=== PATIENT | female | born 1955 | race Caucasian/White ===

== ENCOUNTER 2017-02-03 11:28 | Emergency (ER) | payer OTHER ==
[2017-02-03 12:10] VITALS: RESP 18
[2017-02-03] MEDS ORDERED: NS 1,000 ML IV ONE ×2 (12:13→12:50)
[2017-02-03] MEDS ORDERED: ONDANSETRON 4 MG/2 ML VIAL IVP ONE (12:50)
--- NOTE | 2017-02-03 12:59 | UCPHY ---
H & P Patient Type: Established Chief Complaint Nursing Narrative: c/o N/V/D since last night- went into office told to come into for IV fluids due to low BP Time Seen by Provider: 02/03/17 12:48 HPI/ROS: CHIEF COMPLAINT: Nausea, vomiting, diarrhea HISTORY OF PRESENT ILLNESS: This is a 61-year-old female who flew back from [place] last night. She developed nausea, vomiting, diarrhea in the import/export administrator hours. Has had repeated bouts of vomiting and diarrhea. Went to see her primary care physician this morning noted that she was febrile to 101 as well as hypotensive and was referr to the urgent care for fluids and further evaluation. Patient reports chills. No chest pain or shortness of breath. No palpitations. No urinary complaints. No lightheadedness, headache, or syncope. No bloody diarrhea. No blood in the vomit. No history of GI issues. REVIEW OF SYSTEMS: Aside from elements discussed in the HPI, a comprehensive 10-point review of systems was reviewed and is negative. PAST MEDICAL HISTORY: Hypothyroidism. SOCIAL HISTORY: Nonsmoker. VITAL SIGNS Reviewed by me. Initial blood pressure was 92/63 pulse of 94. Afebrile here. GENERAL: Well-developed, well-nourished, resting comfortably in no respiratory distress. HEENT: Atraumatic. Eyes: No icterus, no injection. Mouth: Slightly dry mucous membranes. No erythema or lesions. Neck: supple with no adenopathy. LUNGS: Clear to auscultation bilaterally, no wheezes, rhonchi or rales. CARDIAC: Regular rate and rhythm, no rubs, murmurs or gallops. ABDOMEN: Soft, nontender, nondistended, bowel sounds normal. No guarding or rebound. BACK: No CVA tenderness. EXTREMITIES: No trauma. No edema. Range of motion is normal throughout. NEURO: Alert and oriented, grossly nonfocal. SKIN: Warm and dry, no rash. PSYCHIATRIC: Normal mentation, no agitation. - Personal History Current Tetanus Diphtheria and Acellular Pertussis (TDAP): Yes - Medical/Surgical History Hx Asthma: No Hx Chronic Respiratory Disease: No Hx Diabetes: No Hx Cardiac Disease: No Hx Renal Disease: No Hx Cirrhosis: No Hx Alcoholism: No Hx HIV/AIDS: No Hx Splenectomy or Spleen Trauma: No Other PMH: x2; - Family History Significant Family History: No pertinent family hx - Social History Smoking Status: Never smoked Constitutional: Initial Vital Signs Temperature (C) 36.6 C 02/03/17 12:01 Heart Rate 94 02/03/17 12:01 Respiratory Rate 18 02/03/17 12:01 Blood Pressure 92/63 L 02/03/17 12:01 O2 Sat (%) 97 02/03/17 12:01 O2 Delivery Mode Room Air Allergies/Adverse Reactions: Penicillins Allergy (Verified 05/29/14 19:19) Home Medications: Medication Instructions Recorded Levothyroxine 05/29/14 Ondansetron Odt [Zofran Odt 4 mg 4 mg PO Q6 PRN #8 tab 02/03/17 (RX)] Medical Decision Making ED Course/Re-evaluation: IV was placed. Patient received a L normal saline as well as Zofran for nausea and vomiting. Given the history of fever, sepsis evaluation was undertaken. Sepsis Evaluation Note: The patient presents to the ED with potential infection identified as gastroenteritis. The patient did [not] have evidence of SIRS and did not have evidence of end-stage dysfunction. She was better after her fluids. She was discharged with Zofran feeling improved. Her abdominal exam remained soft and nontender Differential Diagnosis: Differential diagnosis of the patient's nausea and vomiting was considered including but not limited to gastroenteritis, gastritis, alcohol intoxication, withdrawal symptoms, intraabdominal processes including appendicitis, pancreatitis, bowel obstruction and medication side effect. - Data Points Laboratory Results: Laboratory Results 02/03/17 12:20 02/03/17 12:20 02/03/17 02/03/17 02/03/17 13:45 12:20 12:20 WBC RBC Hgb Hct MCV MCH MCHC RDW Plt Count MPV Neut % (Auto) Lymph % (Auto) [place] % (Auto) Eos % (Auto) Baso % (Auto) Nucleat RBC Rel Count Absolute Neuts (auto) Absolute Lymphs (auto) Absolute Monos (auto) Absolute Eos (auto) Absolute Basos (auto) Absolute Nucleated RBC Immature Gran % Immature Gran # PT 12.5 SEC SEC (12.0-15.0) INR 0.96 (0.83-1.16) APTT 23.2 SEC SEC (23.0-38.0) VBG Lactic Acid 1.1 mmol/L mmol/L (0.7-2.1) Sodium 141 mEq/L mEq/L (134-144) Potassium 3.8 mEq/L mEq/L (3.5-5.2) Chloride 100 mEq/L mEq/L (97-110) Carbon Dioxide 26 mEq/l mEq/l (22-31) Anion Gap 15 mEq/L mEq/L (8-16) BUN 20 mg/dL mg/dL (7-23) Creatinine 0.7 mg/dL mg/dL (0.6-1.0) Estimated GFR > 60 Glucose 128 mg/dL H mg/dL (70-100) Calcium 8.8 mg/dL mg/dL (8.5-10.4) Total Bilirubin 0.8 mg/dL mg/dL (0.1-1.4) 02/03/17 12:20 WBC 10.51 10^3/uL H 10^3/uL (3.80-9.50) RBC 4.67 10^6/uL 10^6/uL (4.18-5.33) Hgb 14.9 g/dL g/dL (12.6-16.3) Hct 43.1 % % (38.0-47.0) MCV 92.3 fL fL (81.5-99.8) MCH 31.9 pg pg (27.9-34.1) MCHC 34.6 g/dL g/dL (32.4-36.7) RDW 12.5 % % (11.5-15.2) Plt Count 244 10^3/uL 10^3/uL (150-400) MPV 10.5 fL fL (8.7-11.7) Neut % (Auto) 95.8 % H % (39.3-74.2) Lymph % (Auto) 1.9 % L % (15.0-45.0) [place] % (Auto) 1.8 % L % (4.5-13.0) Eos % (Auto) 0.1 % L % (0.6-7.6) Baso % (Auto) 0.1 % L % (0.3-1.7) Nucleat RBC Rel Count 0.0 % % (0.0-0.2) Absolute Neuts (auto) 10.07 10^3/uL H 10^3/uL (1.70-6.50) Absolute Lymphs (auto) 0.20 10^3/uL L 10^3/uL (1.00-3.00) Absolute Monos (auto) 0.19 10^3/uL L 10^3/uL (0.30-0.80) Absolute Eos (auto) 0.01 10^3/uL L 10^3/uL (0.03-0.40) Absolute Basos (auto) 0.01 10^3/uL L 10^3/uL (0.02-0.10) Absolute Nucleated RBC 0.00 10^3/uL 10^3/uL (0-0.01) Immature Gran % 0.3 % % (0.0-1.1) Immature Gran # 0.03 10^3/uL 10^3/uL (0.00-0.10) PT INR APTT VBG Lactic Acid Sodium Potassium Chloride Carbon Dioxide Anion Gap BUN Creatinine Estimated GFR Glucose Calcium Total Bilirubin Medications Given: Discontinued Medications Sodium Chloride (Ns) 1,000 mls @ 0 mls/hr IV ONCE ONE PRN Reason: Wide Open Stop: 02/03/17 12:14 Last Admin: 02/03/17 12:19 Dose: 1,000 mls Sodium Chloride (Ns) 1,000 mls @ 0 mls/hr IV ONCE ONE PRN Reason: Wide Open Stop: 02/03/17 12:51 Last Admin: 02/03/17 13:18 Dose: 1,000 mls Ondansetron HCl (Zofran) 4 mg IVP EDNOW ONE Stop: 02/03/17 12:51 Last Admin: 02/03/17 13:18 Dose: 4 mg Departure - Departure Disposition: Home, Routine, Self-Care Clinical Impression: Dehydration Vomiting Qualifiers: Vomiting type: unspecified Vomiting Intractability: non-intractable Nausea presence: with nausea Qualified Code(s): R11.2 - Nausea with vomiting, unspecified Diarrhea Qualifiers: Diarrhea type: unspecified type Qualified Code(s): R19.7 - Diarrhea, unspecified Condition: Good Instructions: Gastroenteritis (ED), Acute Nausea and Vomiting (ED) Additional Instructions: For your vomiting and diarrhea, I suggested you start with a bland diet and advance as tolerated. This means start with clear liquids such as water, Gatorade, juice, flat non- caffeinated soda. If you tolerate clear liquids, then you may add bland foods such as bananas, rice, or toast. If you do not have any worsening of your symptoms, you may begin to resume a regular diet. You may take Zofran as needed for recurrent vomiting. Follow up with your primary care physician if your symptoms are not improving as expected in the next several days. Referrals: Rodrigo Brandon MD [Primary Care Provider] - As per Instructions Prescriptions: Ondansetron Odt [Zofran Odt 4 mg (RX)] 4 mg PO Q6 PRN #8 tab PRN Reason: Nausea - PQRS PQRS Measurement: Not applicable
[2017-02-03 13:27] LABS: % IMMATURE GRANULYOCYTES 0.3 % (0.0-1.1); ABSOLUTE IMMATURE GRANULOCYTES 0.03 10^3/uL (0.00-0.10); ADD DIFF? NO; ADD MORPH? NO; ADD SCAN? NO; ATYPICAL LYMPHOCYTE FLAG 0 (0-99); FRAGMENT RBC FLAG 0 (0-99); HEMATOCRIT 43.1 % (38.0-47.0); HEMOGLOBIN 14.9 g/dL (12.6-16.3); LEFT SHIFT FLG 10 (0-99); LIPEMIA HEMOLYSIS FLAG 90 (0-99); MEAN CELL HEMOGLOBIN 31.9 pg (27.9-34.1); MEAN CELL HEMOGLOBIN CONCENTR. 34.6 g/dL (32.4-36.7); MEAN CELL VOLUME 92.3 fL (81.5-99.8); MEAN PLATELET VOLUME 10.5 fL (8.7-11.7); PLATELET CLUMPS FLAG 10 (0-99); PLATELET COUNT 244 10^3/uL (150-400); RED BLOOD CELL COUNT 4.67 10^6/uL (4.18-5.33); RED CELL DISTRIBUTION WIDTH 12.5 % (11.5-15.2)
[2017-02-03 13:31] LABS: INR 0.96 (0.83-1.16); PROTIME(PATIENT) 12.5 SEC (12.0-15.0)
[2017-02-03 13:32] LABS: APTT 23.2 SEC (23.0-38.0)
[2017-02-03 13:34] LABS: ANION GAP 15 mEq/L (8-16); BILIRUBIN,TOTAL 0.8 mg/dL (0.1-1.4); CALCIUM 8.8 mg/dL (8.5-10.4); CARBON DIOXIDE 26 mEq/l (22-31); CHLORIDE 100 mEq/L (97-110); CREATININE 0.7 mg/dL (0.6-1.0); GLOMERULAR FILTRATION RATE > 60; GLUCOSE 128 mg/dL (70-100); POTASSIUM 3.8 mEq/L (3.5-5.2); SODIUM 141 mEq/L (134-144)
[2017-02-03 14:29] VITALS: BP 115/61; PULSE 85; TEMP 98; O2SAT 96
== END 2017-02-03 14:40 | disposition home or self-care (01) ==
LOC: CED 11:28
DX: R11.2 Nausea with vomiting, unspecified (principal); R19.7 Diarrhea, unspecified; E86.0 Dehydration; E03.9 Hypothyroidism, unspecified
CPT/HCPCS: 80048-PO; 82247-PO; 83605-PO; 85025-PO; 85610-PO; 85730-PO; 96361-PO; 96374-PO; 99215-PO; G0463-PO

== ENCOUNTER → 2017-09-08 | Outpatient (CLI) | payer OTHER | LOC: CIMAGING 14:33 | PROVIDERS: ATTEND Surgery | DX: Z12.31 Encounter for screening mammogram for malignant neoplasm of breast (principal) | CPT/HCPCS: G0202 ==

== ENCOUNTER → 2018-09-11 | Outpatient (CLI) | payer OTHER | LOC: CIMAGING 14:13 | PROVIDERS: ATTEND Surgery | DX: Z12.31 Encounter for screening mammogram for malignant neoplasm of breast (principal) ==